=== PATIENT | male | born 1955 | race African-American/Black ===

== ENCOUNTER 2019-03-28 07:27 | Emergency (ER) | payer OTHER ==
[~2019-03-28] VITALS: Ht 172.7 cm; Wt 81.2 kg
[2019-03-28 08:36] VITALS: BP 152/91
== END 2019-03-28 08:35 | disposition home or self-care (01) ==
LOC: FSED 07:27
DX: B02.9 Zoster without complications (principal)
CPT/HCPCS: 99282